=== PATIENT | male | born 1960 | race Caucasian/White ===

== ENCOUNTER → 2018-07-19 10:28 | Outpatient (CLI) | payer MEDICARE ==
--- NOTE | ~2018-07-19 | HEMODYNAMI ---
PATIENT:DEBO KOWALSKI MEDICAL RECORD: [id number] : 58 [id number] ADMISSION DATE: 07/19/18 Generatedon:07/19/201810:54 Patient name: DEBO KOWALSKI Patient #: [id number] SSN: : 1960 Date of study: 07/19/2018 Page: Of Hemodynamic Procedure Report Patient Data Patient Demographics First Name: DEBO Gender: Male Last Name: DEX : 1960 Patient #: [id number] Age: 57 year(s) Race: Unknown Additional ID: [id number] Contact details [address]: [address] [place] [address] [address]IVE State: [place] City: [place] Zip code: [address] Admission Admission Data Admission Date: 07/19/2018 Admission Time: 10:28 Procedure Procedure Types Cath Procedure Peripheral Cath Diagnostic Procedure Cath Peripheral Gastric G Tube Placement Procedure Description Procedure Date Procedure Date: 07/19/2018 Procedure Start Time: 10:43 Procedure Staff Name Function Adali Corey MD Ordering physician Adali Corey MD 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 Debo Pagan MD Performing Physician Mariama Butcher RT Stage Hand Eryn Harris RN Nurse Procedure Data Cath Procedure Fluoroscopy Diagnostic fluoroscopy Total fluoroscopy Time: 0.7 time: 0.7 min min Diagnostic fluoroscopy Total fluoroscopy dose: 6 dose: 6 mGy mGy Contrast Material Contrast Material Type Amount (ml) Isovue 300 10 Diagnostic catheters Device Type Used For End Catheter Placement Merit Impress KA 2 5Fr 40CM catheter ([id number]) Hemodynamics Rest Pre Cath Intra NCS Post Cath Procedure Log Time Note 10:33:08 Time tracking: Regular hours (M-F 7:00 - 5:00) 10:40:08 Physician arrived 10:43:48 Procedure started. 10:43:49 Full Disclosure recording started 10:44:55 Use device set IR Diagnostic 10:44:57 Sterile Angiographic Pack opened to sterile field. 10:44:59 Bag Decanter (2002S) opened to sterile field. 10:45:12 AMPLATZ Super Stiff 75cm wire ([id number]) opened to sterile field. 10:45:51 A Merit Impress KA 2 5Fr 40CM catheter ([id number]) was advanced over the wire and used for . 10:47:31 GASTROSTOMY 16Fr Tri-Funnel Tube (448840) opened to sterile field. 10:48:49 Procedure ended.(Physican Out) 10:49:03 Fluoroscopy time 00.70 minutes. 10:49:07 Fluoroscopy dose: 6 mGy 10:49:07 Flurop Dose total: 6 10:49:13 Contrast amount:Isovue 300 10ml. Device Usage Item Name Manufacture Quantity Catalog Hospital Part Current Minimal Lot# / Number Charge Number Stock Stock Serial# Code Sterile Cardinal 1 [id number] 5 Angiographic Health Pack Bag Decanter Microtek 1 [id number] 01878 [id number] 5 () Medical Inc. AMPLATZ Pinckard 1 [id number] [id number] [id number] 5 Super Stiff Scientific 75cm wire ([id number]) Merit Merit 1 [id number] 234945 [id number] 5 Impress KA 2 Medical 5Fr 40CM catheter ([id number]) GASTROSTOMY Bard 1 128169 589007 816561 5 18Fr Tri-Funnel Tube (315851) Signature Audit [place] Stage Time Signature Unsigned Intra-Procedure 07/19/2018 Mariama Butcher 10:54:26 AM RT(R) [facility] [address] [place] [address]
== END | disposition home or self-care (01) ==
LOC: D.RAD 08:00 → D.SP 08:00
DX: K94.29 Other complications of gastrostomy (principal); Z01.812 Encounter for preprocedural laboratory examination

== ENCOUNTER 2018-09-06 10:11 | Emergency (ER) | payer MEDICARE ==
[~2018-09-06] VITALS: Ht 182.9 cm; Wt 79.5 kg
[2018-09-06 10:21] VITALS: Ht 182.9 cm; Wt 79.5 kg
[2018-09-06] MEDS ORDERED: DEPAKENE 2250 MG/5 M PO (10:31)
[2018-09-06] MEDS ORDERED: ADVIL200 MG PO (10:36)
[2018-09-06] MEDS ORDERED: ZYPREXA10 MG PEG (10:36)
[2018-09-06] MEDS ORDERED: MULTI-DAY VITAM1 TAB PEG (10:37)
[2018-09-06] MEDS ORDERED: ATIVAN1 MG PEG (10:37)
[2018-09-06] MEDS ORDERED: CHRONULAC30 ML PEG (10:37)
[2018-09-06] MEDS ORDERED: DULCOLAX10 MG/SUPP RC (10:38)
[2018-09-06] MEDS ORDERED: DIAZEPAM5 MG/5 M1 PEG (10:38)
[2018-09-06] MEDS ORDERED: FLUVOXAMINE MAL50 MG PEG (10:39)
[2018-09-06] MEDS ORDERED: VITAMIN D31000 UNIT PEG (10:39)
[2018-09-06] MEDS ORDERED: LAMICTAL200 M1 PEG (10:39)
[2018-09-06] MEDS ORDERED: PROPRANOLOL HCL20 MG PEG (10:40)
[2018-09-06] MEDS ORDERED: ENTERAL FEEDING (10:40)
[2018-09-06 13:19] VITALS: BP 118/62
== END 2018-09-06 13:21 | disposition home or self-care (01) ==
LOC: D.ER 10:11
DX: K94.29 Other complications of gastrostomy (principal)

== ENCOUNTER → 2018-09-13 08:09 | Outpatient (CLI) | payer MEDICARE ==
[2018-09-06 10:21] VITALS: BMI 23.8
--- NOTE | ~2018-09-13 | HEMODYNAMI ---
PATIENT:DEBO KOWALSKI MEDICAL RECORD: [id number] : 58 [facility] ADMISSION DATE: 09/13/18 Generatedon:09/13/20189:58 Patient name: DEBO KOWALSKI Patient #: [id number] SSN: : 1960 Date of study: 09/13/2018 Page: Of Hemodynamic Procedure Report Patient Data Patient Demographics Procedure consent was obtained First Name: DEBO Gender: Male Last Name: DEX : 1960 Patient #: [id number] Age: 57 year(s) Race: Unknown Additional ID: [id number] Contact details [address]: [address] [place] [address] [address] State: [place] City: [place] Zip code: [address] Admission Admission Data Admission Date: 09/13/2018 Admission Time: 8:09 Procedure Procedure Types Cath Procedure Peripheral Cath 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 Peripheral 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 Gastric G Tube Replacement Procedure Description Procedure Date Procedure Date: 09/13/2018 Procedure Start Time: 9:46 Procedure Staff Name Function Debo Pagan MD Performing Physician Mariama Butcher RT Guitar Player Eryn Harris RN Nurse Camilo Washington RT Scrub Procedure Data Cath Procedure Fluoroscopy Diagnostic fluoroscopy Total fluoroscopy Time: 0.6 time: 0.6 min min Diagnostic fluoroscopy Total fluoroscopy dose: dose: 5.74 mGy 5.74 mGy Hemodynamics Rest Pre Cath Intra NCS Post Cath Procedure Log Time Note 9:27:53 Use device set IR Diagnostic 9:27:56 Tegaderm 4 x 4 ([id number]) opened to sterile field. 9:27:57 Sterile Angiographic Pack opened to sterile field. 9:27:58 Bag Decanter (2002S) opened to sterile field. 9:28:26 Time tracking: Regular hours (M-F 7:00 - 5:00) 9:28:39 Patient received from Other to IR Alert and oriented. Tansferred to table in Supine position. 9:28:45 Signed procedure consent form obtained from guardian. 9:28:48 9:28:55 Family unavailable. 9:38:29 Physician arrived 9:41:45 --------ALL STOP TIME OUT------ 9:42:39 Final Timeout: patient, procedure, and site verified with staff and physician. All members of the team are in agreement. 9:46:23 Procedure started. 9:46:23 Full Disclosure recording started 9:55:45 GASTROSTOMY 18Fr Tri-Funnel Tube ([id number]) opened to sterile field. 9:56:04 CINTHYA .035 15cm wire (N54054) opened to sterile field. 9:56:18 a 16fr bard tri funnel gastrostomy tube placed 9:56:38 Procedure ended.(Physican Out) 9:57:43 Fluoroscopy time 00.60 minutes. 9:57:52 Fluoroscopy dose: 5.74 mGy 9:57:52 Flurop Dose total: 5.74 9:57:55 Procedure and supply charges have been captured, reviewed, submitted and are correct. Device Usage Item Name Manufacture Quantity Catalog Hospital Part Current Minimal Lot# / Number Charge Number Stock Stock Serial# Code Tegaderm 4 x 3M 1 [id number] 5 4 (1626W) Sterile Cardinal 1 [id number] 172691 5 Angiographic Health Pack Bag Decanter Microtek 1 928778 58431 446024 5 () Medical Inc. GASTROSTOMY Bard 1 223627 759101 336426 5 18Fr Tri-Funnel Tube (190470) CINTHYA .035 [employer] 1 [id number] 436697 [id number] 5 [id number] 15cm wire (D30468) Signature Audit [place] Stage Time Signature Unsigned Intra-Procedure 09/13/2018 Mariama Butcher 9:58:24 AM RT(R) [place] [id number] [place] [address]
[~2018-09-13 08:09] MED LIST: ADVIL200 MG PO; ATIVAN1 MG PEG; CHRONULAC30 ML PEG; DEPAKENE 2250 MG/5 M PO; DIAZEPAM5 MG/5 M1 PEG; DULCOLAX10 MG/SUPP RC; ENTERAL FEEDING; FLUVOXAMINE MAL50 MG PEG; LAMICTAL200 M1 PEG; MULTI-DAY VITAM1 TAB PEG; PROPRANOLOL HCL20 MG PEG; VITAMIN D31000 UNIT PEG; ZYPREXA10 MG PEG
== END | disposition home or self-care (01) ==
LOC: D.RAD 09-12 09:00 → D.SP 08:09 → D.RAD 09:00 → D.SP 09:00
DX: K94.29 Other complications of gastrostomy (principal); Z01.812 Encounter for preprocedural laboratory examination

== ENCOUNTER → 2018-09-15 06:46 | Outpatient (CLI) | payer MEDICARE ==
[2018-09-06 10:21] VITALS: BMI 23.8
--- NOTE | ~2018-09-15 | HEMODYNAMI ---
PATIENT:DEBO KOWALSKI MEDICAL RECORD: [id number] : 58 [id number] ADMISSION DATE: 09/15/18 Generatedon:09/15/201811:00 Patient name: DEBO KOWALSKI Patient #: [id number] SSN: : 1960 Date of study: 09/15/2018 Page: Of Hemodynamic Procedure Report Patient Data Patient Demographics Procedure consent was obtained First Name: DEBO Gender: Male Last Name: DEX : 1960 Patient #: [id number] Age: 57 year(s) Race: Unknown Additional ID: [id number] Contact details Address: [address] [place] [address] [address] State: [place] City: [place] Zip code: [address] Admission Admission Data Admission Date: 09/15/2018 Admission Time: 6:46 Procedure Procedure Types Cath Procedure Peripheral Cath Diagnostic Procedure Gastric G Tube Replacement Procedure Description Procedure Date Procedure Date: 09/15/2018 Procedure Start Time: 10:46 Procedure Staff Name Function Artemio Alfaro MD Performing Physician Camilo Washington RT Scrub Mariama Butcher RT Monitor Marie Tejeda RN Nurse Procedure Data Cath Procedure Fluoroscopy Diagnostic fluoroscopy Total fluoroscopy Time: 0.7 time: 0.7 min min Diagnostic fluoroscopy Total fluoroscopy dose: 5 dose: 5 mGy mGy Contrast Material Contrast Material Type Amount (ml) Isovue 300 15 Hemodynamics Rest Pre Cath Intra NCS Post Cath Procedure Log Time Note 10:30:51 Patient received from Other to IR Alert and oriented. Tansferred to table in Supine position. 10:30:52 Correct patient and procedure confirmed by team. 10:30:54 Signed procedure consent form obtained from guardian. 10:30:56 - 10:31:34 Unable to provide pre-op teaching due to educational barrier. pt. has unable to communicate 10:31:43 Use device set IR Diagnostic 10:31:45 Sterile Angiographic Pack opened to sterile field. 10:31:46 Bag Decanter () opened to sterile field. 10:45:27 Physician arrived 10:45:27 --------ALL STOP TIME OUT------ 10:45:32 Left abdomen site verified by team. 10:45:56 Sedation plan: None Medication:Lidocaine 10:46:19 Procedure started. 10:46:20 Full Disclosure recording started 10:46:32 KO 180cm wire ([id number]) opened to sterile field. 10:58:[address] [facility] .035 145 glide wire (M41045) opened to sterile field. 10:58:40 16 fr bard tri funnel gastrostomy tube placed 10:58:50 Procedure ended.(Physican Out) 10:59:03 Fluoroscopy time 00.70 minutes. 10:59:07 Fluoroscopy dose: 5 mGy 10:59:07 Flurop Dose total: 5 10:59:17 Contrast amount:Isovue 300 15ml. 10:59:19 Procedure and supply charges have been captured, reviewed, submitted an d are correct. Device Usage Item Name Manufacture Quantity Catalog Hospital Part Current Minimal Lot# / Number Charge Number Stock Stock Serial# Code Sterile Cardinal 1 [id number] 5 Angiographic Health Pack Bag Decanter Microtek 1 [id number] 80971 [id number] 5 () [employer] KO 180cm [facility] 1 [id number] 125694 [id number] 5 wire (B33139) [facility] [id number] 265154 620872 652511 5 [id number] .035 145 glide wire (R56140) Signature Audit [place] Stage Time Signature Unsigned Intra-Procedure 09/15/2018 Mariama Butcher 11:00:15 AM RT(R) Signatures Monitor : Mariama Butcher RT Signature : Date : Time : [facility] [address] [place] [id number]
== END | disposition home or self-care (01) ==
LOC: D.RAD 06:46
DX: K94.29 Other complications of gastrostomy (principal)